=== PATIENT | female | born 1960 | race African-American/Black ===

== ENCOUNTER 2017-04-04 14:14 | Emergency (ER) | payer OTHER ==
[~2017-04-04] VITALS: Ht 160 cm; Wt 86.8 kg
[~2017-04-04 14:14] MED LIST: INSULI SQ
[2017-04-04] MEDS ORDERED: INSLAN SQ (14:23)
[2017-04-04 14:27] LABS: GLUCOSE,POINT OF CARE 174 MG/DL (70-110)
[2017-04-04] MEDS ORDERED: KETOROLAC TROMETHAMINE 60 MG/2 ML VIAL IM ONE (15:15)
[2017-04-04] MEDS ORDERED: METHOCARBAMOL 500 MG TABLET PO ONE (15:15)
[2017-04-04 15:55] LABS: APPEARANCE,URINE CLOUDY (CLEAR); GLUCOSE, URINE (UA) NEGATIVE (NEGATIVE); KETONES,URINE NEGATIVE (NEGATIVE); LEUKOCYTE ESTERASE ,URINE MODERATE (NEGATIVE); OCCULT BLOOD,URINE NEGATIVE (NEGATIVE); PH,URINE 5.5 (5.0-8.0); PROTEIN,URINE NEGATIVE (NEGATIVE)
[2017-04-04 15:57] LABS: ADD UA MICROSCOPIC YES
[2017-04-04 16:05] LABS: SQUAMOUS EPITHELIAL CELL,UR Moderate /LPF (None Seen)
[2017-04-04 16:06] LABS: RBC,URINE 0-2 /HPF (0-2); WBC,URINE 26-50 /HPF (0-5)
[2017-04-04 16:30] VITALS: BP 125/78
== END 2017-04-04 16:38 | disposition home or self-care (01) ==
LOC: EMS 14:18
DX: M54.5 Low back pain (principal); N39.0 Urinary tract infection, site not specified; F17.210 Nicotine dependence, cigarettes, uncomplicated; E11.9 Type 2 diabetes mellitus without complications
CPT/HCPCS: 81001; 82962; 87077; 87086; 87186; 96372; 99284; J1885

== ENCOUNTER 2019-03-15 19:23 | Emergency (ER) | payer OTHER ==
[~2019-03-15 19:23] MED LIST changes: +INSLAN SQ; -INSULI SQ
== END 2019-03-15 20:00 | disposition left against medical advice (07) ==
LOC: EMS 19:24
DX: M25.569 Pain in unspecified knee (principal); Z53.21 Procedure and treatment not carried out due to patient leaving prior to being seen by health care provider